=== PATIENT | female | born 1980 | race Caucasian/White ===

== ENCOUNTER 2019-12-23 00:24 | Emergency (ER) | payer OTHER, SELFPAY ==
[2019-12-23] MEDS ORDERED: Sodium Chloride 0.9% 1,000 ML IV ONE (00:59)
[2019-12-23] MEDS ORDERED: LORazepam 2 MG/ML SDV IVPUSH ONE (01:01)
--- NOTE | 2019-12-23 01:04 | EDM.PDOC ---
ED HPI GENERAL MEDICAL PROBLEM - General Chief Complaint: General Stated Complaint: SPOKE TO NURSE Time Seen by Provider: 12/23/19 00:47 - History of Present Illness INITIAL COMMENTS - FREE TEXT/NARRATIVE: PI the patient took an edible at 8 PM. She is never used marijuana or drugs. The edible was one that was given to her by a friend he is fairly sophisticated habitual marijuana user and she presumes at a fairly high concentration. She had an entire rice crispy sized edible. Since then she is becoming increasingly paranoid and has feelings and thoughts that bother her. She is actually quite frightened. She is frightened because her thoughts are that she might suddenly do something she cannot explain like hurt herself or hurt somebody else. She is also afraid someone else will hurt her. The patient has a history of depression but has never been admitted. The patient has never tried suicide and never been dangerous. The patient wants the thoughts to go away and presents here because she is worried that they are persisting so long. History of present illness: [] Review of systems: As per history of present illness and below otherwise all systems reviewed and negative. Past medical history: As per history of present illness and as reviewed below otherwise noncontributory. Surgical history: As per history of present illness and as reviewed below otherwise noncontributory. Social history: No reported history of drug or alcohol abuse. Family history: As per history of present illness and as reviewed below otherwise noncontributory. Physical exam: Constitutional - well developed, well-nourished and in no acute distress HEENT - normocephalic, no evidence of trauma - external nose and mouth normal - no mass in neck and no JVD - mucosae moist EYES - full EOM, PERRL, no icterus - no evidence of inflammation, injection, or drainage Respiratory - no respiratory distress, equal bilateral expansion, lungs clear to auscultation and no abnormal lung sounds Cardiovascular - Regular Rhythm with S1 and S2 appreciated and no murmur, gallop or rub. GI - abdomen soft without distension or organomegaly - normal bowel sounds - no guard or rebound Musculoskeletal no gross deformity of long bones or joints - no tenderness, swelling or edema Neurologic - Alert and oriented times four - CN II-XII grossly intact - motor sensory and coordination symmetrically normal Psychiatric -patient thought content is normal except for the fact that she has the fear that she is going to think about and act out on impulsive behavior like hurting herself or hurting someone else. She has no desire to hurt herself or hurt anyone. The patient is cooperative and pleasant. Hematologic - No petechiae or purpura - mucosa appropriate color and sclera not pale - normal nail bed color and refill Integument - no rash or evidence of trauma - normal turgor Diagnostics: [] Therapeutics: [] Impression: [] Plan: [] Definitive disposition and diagnosis as appropriate pending reevaluation and review of above. - Related Data Allergies Allergy/AdvReac Type Severity Reaction Status Date / Time adhesive Allergy Rash Verified 12/23/19 00:40 morphine Allergy Nausea and Verified 12/23/19 00:40 Vomiting Penicillins Allergy Rash Verified 12/23/19 00:40 Home Meds: Home Meds . 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 History: Reports: Endometriosis, Musculoskeletal History: Reports: None Neurological History: Reports: Headaches, Chronic Other Neuro History: reports daily headaches Psychiatric History: Reports: None Endocrine/Metabolic History: Reports: None Hematologic History: Reports: None Immunologic History: Reports: None Oncologic (Cancer) History: Reports: None Dermatologic History: Reports: Other (See Below) Other Dermatologic History: lichen sclerosus - Infectious Disease History Infectious Disease History: Reports: Chicken Pox - Past Surgical History Head Surgeries/Procedures: Reports: None HEENT Surgical History: Reports: None Cardiovascular Surgical History: Reports: None Respiratory Surgical History: Reports: None GI Surgical History: Reports: Colonoscopy Female Surgical History: Reports: Hysterectomy Endocrine Surgical History: Reports: None Neurological Surgical History: Reports: None Musculoskeletal Surgical History: Reports: None Oncologic Surgical History: Reports: None Dermatological Surgical History: Reports: None Social & Family History - Family History Cardiac: Reports: Hypertension Respiratory: Reports: Other (See Below) Other Respiratory Family Hisory: Lung cancer Oncologic: Reports: Lung - Tobacco Use Smoking Status *Q: Never Smoker Second Hand Smoke Exposure: No - Caffeine Use Caffeine Use: Reports: None - Recreational Drug Use Recreational Drug Use: No ED ROS GENERAL - Review of Systems Review Of Systems: Comprehensive ROS is negative, except as noted in HPI. ED EXAM, GENERAL - Physical Exam Exam: See Below Free Text/Narrative:: My physical exam as in the HPI Course - Vital Signs Text/Narrative:: 1:46 AM patient's calm and in no acute distress 2:47 AM patient has a supportive and is in no acute distress. Discharged in satisfactory condition. Last Recorded V/S: Last Vital Signs Temp 96.8 F L 12/23/19 00:36 Pulse 104 H 12/23/19 00:36 Resp 20 12/23/19 00:36 BP 143/95 H 12/23/19 00:36 Pulse Ox 98 12/23/19 00:36 - Orders/Labs/Meds Orders: Active Orders 24 hr Category Date Time Status COMPREHENSIVE METABOLIC PN,CMP [CHEM] Stat Lab 12/23/19 02:00 Results Labs: Laboratory Tests 12/23/19 12/23/19 Range/Units 02:00 02:00 WBC 17.28 H (4.0-11.0) K/uL RBC 4.89 (4.30-5.90) M/uL Hgb 14.8 (12.0-16.0) g/dL Hct 43.7 (36.0-46.0) % MCV 89.4 (80.0-98.0) fL MCH 30.3 (27.0-32.0) pg MCHC 33.9 (31.0-37.0) g/dL RDW Std Deviation 43.1 (28.0-62.0) fl RDW Coeff of Mathew 13 (11.0-15.0) % Plt Count 328 (150-400) K/uL MPV 9.20 (7.40-12.00) fL Neut % (Auto) 80.5 H (48.0-80.0) % Lymph % (Auto) 13.1 L (16.0-40.0) % Gillespie % (Auto) 5.4 (0.0-15.0) % Eos % (Auto) 0.8 (0.0-7.0) % Baso % (Auto) 0.2 (0.0-1.5) % Neut # (Auto) 13.9 H (1.4-5.7) K/uL Lymph # (Auto) 2.3 (0.6-2.4) K/uL Gillespie # (Auto) 0.9 H (0.0-0.8) K/uL Eos # (Auto) 0.1 (0.0-0.7) K/uL Baso # (Auto) 0.0 (0.0-0.1) K/uL Nucleated RBC % 0.0 /100WBC Nucleated RBCs # 0 K/uL Sodium 140 (136-145) mmol/L Potassium 4.3 (3.5-5.1) mmol/L Chloride 103 (98-107) mmol/L Carbon Dioxide 26.4 (21.0-32.0) mmol/L BUN 15 (7.0-18.0) mg/dL Creatinine 0.8 (0.6-1.0) mg/dL Est Cr Clr Drug Dosing 93.63 mL/min Estimated GFR (MDRD) > 60.0 ml/min Glucose 171 H (74-106) mg/dL Calcium 8.7 (8.5-10.1) mg/dL Total Bilirubin 0.3 (0.2-1.0) mg/dL ALT 50 (14-63) IU/L Alkaline Phosphatase 120 H (46-116) U/L Total Protein 7.4 (6.4-8.2) g/dL Albumin 3.9 (3.4-5.0) g/dL Globulin 3.5 (2.6-4.0) g/dL Albumin/Globulin Ratio 1.1 (0.9-1.6) Meds: Medications Discontinued Medications Generic Name Dose Route Start Last Admin Trade Name Freq PRN Reason Stop Dose Admin Sodium Chloride 1,000 mls @ 999 mls/hr 12/23/19 00:59 12/23/19 01:52 Normal Saline IV 12/23/19 01:59 Not Given .BOLUS ONE Lorazepam 0.5 mg 12/23/19 01:01 12/23/19 01:52 Ativan IVPUSH 12/23/19 01:02 Not Given ONETIME ONE Lorazepam 0.5 mg 12/23/19 01:25 12/23/19 01:28 Ativan PO 12/23/19 01:26 0.5 mg ONETIME ONE Administration Lorazepam Confirm 12/23/19 01:25 12/23/19 01:52 Ativan Administered 12/23/19 01:26 Not Given Dose 0.5 mg .ROUTE .STK-MED ONE Departure - Departure Time of Disposition: 02:45 Disposition: Home, Self-Care 01 Condition: Good Clinical Impression: Anxiety, Medication reaction - Discharge Information Instructions: Accidental Drug Poisoning, Adult, Supporting Someone With Anxiety Referrals: Benigno Mendoza MD [Primary Care Provider] - Forms: ED Department Discharge Additional Instructions: [facility] [address] [place] [id number] [id number] The following information is given to patients seen in the emergency department who are being discharged to home. This information is to outline your options for follow-up care. We provide all patients seen in our emergency department with a follow-up referral. The need for follow-up, as well as the timing and circumstances, are variable depending upon the specifics of your emergency department visit. If you don't have a primary care physician on staff, we will provide you with a referral. We always advise you to contact your personal physician following an emergency department visit to inform them of the circumstance of the visit and for follow-up with them and/or the need for any referrals to a consulting specialist. The emergency department will also refer you to a specialist when appropriate. This referral assures that you have the opportunity for follow-up care with a specialist. All of these measure are taken in an effort to provide you with optimal care, which includes your follow-up. Under all circumstances we always encourage you to contact your private physician who remains a resource for coordinating your care. When calling for follow-up care, please make the office aware that this follow-up is from your recent emergency room visit. If for any reason you are refused follow-up, please contact the [facility] Emergency Department at and asked to speak to the emergency department charge nurse. Sepsis Event Note (ED) - Evaluation Sepsis Screening Result: No Definite Risk - Focused Exam Vital Signs: Vital Signs Temp Pulse Resp BP Pulse Ox 12/23/19 00:36 96.8 F L 104 H 20 143/95 H 98 - My Orders Last 24 Hours: My Active Orders 12/23/19 02:00 COMPREHENSIVE METABOLIC PN,CMP [CHEM] Stat - Assessment/Plan Last 24 Hours: My Active Orders 12/23/19 02:00 COMPREHENSIVE METABOLIC PN,CMP [CHEM] Stat
[2019-12-23] MEDS ORDERED: LORazepam 0.5 MG Tab PO ONE (01:25)
[2019-12-23] MEDS ORDERED: LORazepam 0.5 MG Tab ONE (01:25)
[2019-12-23 02:23] LABS: BLOOD UREA NITROGEN,BUN 15 mg/dL (7.0-18.0); CARBON DIOXIDE,CO2 26.4 mmol/L (21.0-32.0); CHLORIDE,CL 103 mmol/L (98-107); GLUCOSE RANDOM 171 mg/dL (74-106); POTASSIUM,K 4.3 mmol/L (3.5-5.1); SODIUM,NA 140 mmol/L (136-145)
[2019-12-23 03:04] VITALS: BP 119/83; PULSE 99
== END 2019-12-23 03:00 | disposition home or self-care (01) ==
LOC: MW.ED 00:24
DX: F41.9 Anxiety disorder, unspecified (principal); T40.7X5A Adverse effect of cannabis (derivatives), initial encounter; Z88.5 Allergy status to narcotic agent; Z88.0 Allergy status to penicillin; Z91.048 Other nonmedicinal substance allergy status
CPT/HCPCS: 36415; 80053; 85025; 99284; A9270; 99282

== ENCOUNTER 2020-12-19 11:54 | Emergency (ER) | payer SELFPAY ==
[2020-12-19] MEDS ORDERED: Ibuprofen 800 MG Tab PO ONE (13:12)
--- NOTE | 2020-12-19 13:14 | EDM.PDOC ---
ED HPI GENERAL MEDICAL PROBLEM - General Chief Complaint: Respiratory Problem Stated Complaint: PT MEGHAN SHE HAS BEEN RUNNING 89 FEVER Time Seen by Provider: 12/19/20 12:09 - History of Present Illness INITIAL COMMENTS - FREE TEXT/NARRATIVE: History of present illness: [] The patient has body aches and fever for 3 days. She has been exposed to Covid perhaps. She is not vaccinated. Her BMI is over 25. She does not have any other systemic illness of significance. Review of systems: As per history of present illness and below otherwise all systems reviewed and negative. Past medical history: As per history of present illness and as reviewed below otherwise noncontributory. Surgical history: As per history of present illness and as reviewed below otherwise noncontributory. Social history: No reported history of drug or alcohol abuse. Family history: As per history of present illness and as reviewed below otherwise noncontributory. Physical exam: Constitutional - well developed, well-nourished and in no acute distress HEENT - normocephalic, no evidence of trauma - external nose and mouth normal - no mass in neck and no JVD - mucosae moist EYES - full EOM, PERRL, no icterus - no evidence of inflammation, injection, or drainage Respiratory - no respiratory distress, equal bilateral expansion, lungs diminished breath sounds with prolonged expiratory phase of respiration. Cardiovascular - Regular Rhythm with S1 and S2 appreciated and no murmur, gallop or rub. GI - abdomen soft without distension or organomegaly - normal bowel sounds - no guard or rebound Musculoskeletal no gross deformity of long bones or joints - no tenderness, swelling or edema Neurologic - Alert and oriented times four - CN II-XII grossly intact - motor sensory and coordination symmetrically normal Psychiatric - appropriate mood and affect with normal thought content Hematologic - No petechiae or purpura - mucosa appropriate color and sclera not pale - normal nail bed color and refill Integument - no rash or evidence of trauma - normal turgor Diagnostics: [] Therapeutics: [] Impression: [] Plan: [] Definitive disposition and diagnosis as appropriate pending reevaluation and review of above. general Pain Score (Numeric/FACES): 3 - Related Data Allergies Allergy/AdvReac Type Severity Reaction Status Date / Time adhesive Allergy Rash Verified 12/19/20 12:51 morphine Allergy Nausea and Verified 12/19/20 12:51 Vomiting Penicillins Allergy Rash Verified 12/19/20 12:51 Home Meds: Home Meds Azithromycin 250 mg PO DAILY #6 tablet 12/19/20 [Rx] Past Medical History HEENT History: Reports: None Cardiovascular History: Reports: None Respiratory History: Reports: None Gastrointestinal History: Reports: GERD, Other (See Below) Other Gastrointestinal History: present c/o abd bloating and epigastric pain Genitourinary History: Reports: None 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, Musculoskeletal History: Reports: None Neurological History: Reports: Headaches, Chronic Other Neuro History: reports daily headaches Psychiatric History: Reports: None Endocrine/Metabolic History: Reports: None Hematologic History: Reports: None Immunologic History: Reports: None Oncologic (Cancer) History: Reports: None Dermatologic History: Reports: Other (See Below) Other Dermatologic History: lichen sclerosus - Infectious Disease History Infectious Disease History: Reports: Chicken Pox - Past Surgical History Head Surgeries/Procedures: Reports: None HEENT Surgical History: Reports: None Cardiovascular Surgical History: Reports: None Respiratory Surgical History: Reports: None GI Surgical History: Reports: Colonoscopy Female Surgical History: Reports: Hysterectomy Endocrine Surgical History: Reports: None Neurological Surgical History: Reports: None Musculoskeletal Surgical History: Reports: None Oncologic Surgical History: Reports: None Dermatological Surgical History: Reports: None Social & Family History - Family History Cardiac: Reports: Hypertension Respiratory: Reports: Other (See Below) Other Respiratory Family Hisory: Lung cancer Oncologic: Reports: Lung - Tobacco Use Tobacco Use Status *Q: Never Tobacco User - Caffeine Use Caffeine Use: Reports: None ED ROS GENERAL - Review of Systems Review Of Systems: Comprehensive ROS is negative, except as noted in HPI. ED EXAM, GENERAL - Physical Exam Exam: See Below Free Text/Narrative:: My physical exam is in the HPI Course - Vital Signs Text/Narrative:: 1438 the patient has a lobar pneumonia that is atypical for COVID-19. She chose to have Zithromax for the possibility this could be bacterial. Because of her BMI she also chose to have monoclonal antibodies which will be arranged. Last Recorded V/S: Last Vital Signs Temp 38.4 C H 12/19/20 13:18 Pulse 95 12/19/20 12:51 Resp 18 12/19/20 12:51 BP 129/76 12/19/20 12:51 Pulse Ox 95 12/19/20 12:51 - Orders/Labs/Meds Labs: Laboratory Tests 12/19/20 Range/Units 13:20 SARS-CoV-2 RNA (SHUKRI) POSITIVE H (NEGATIVE) Meds: Medications Discontinued Medications Generic Name Dose Route Start Last Admin Trade Name Michael PRN Reason Stop Dose Admin Ibuprofen 800 mg 12/19/20 13:12 12/19/20 13:18 Ibuprofen 800 Mg Tab PO 12/19/20 13:13 800 mg ONETIME ONE Administration Departure - Departure Time of Disposition: 14:41 Disposition: Home, Self-Care 01 Condition: Good Clinical Impression: COVID-19, Right lower lobe pneumonia - Discharge Information Prescriptions: Azithromycin 250 mg PO DAILY #6 tablet Instructions: COVID-19 Vaccine Information, COVID-19 Frequently Asked Questions, 10 Things You Can Do to Manage Your COVID-19 Symptoms at Home - [facility] (10/11/2019), COVID-19: Quarantine vs. Isolation - [facility] (03/28/2020), Community- Acquired Pneumonia, Adult Referrals: Benigno Mendoza MD [Primary Care Provider] - Forms: ED Department Discharge, ED Department Discharge Additional Instructions: [facility] - Primary Care [address] [place] [id number] [id number] The following information is given to patients seen in the emergency department who are being discharged to home. This information is to outline your options for follow-up care. We provide all patients seen in our emergency department with a follow-up referral. The need for follow-up, as well as the timing and circumstances, are variable depending upon the specifics of your emergency department visit. If you don't have a primary care physician on staff, we will provide you with a referral. We always advise you to contact your personal physician following an emergency department visit to inform them of the circumstance of the visit and for follow-up with them and/or the need for any referrals to a consulting specialist. The emergency department will also refer you to a specialist when appropriate. This referral assures that you have the opportunity for follow-up care with a specialist. All of these measure are taken in an effort to provide you with optimal care, which includes your follow-up. Under all circumstances we always encourage you to contact your private physician who remains a resource for coordinating your care. When calling for follow-up care, please make the office aware that this follow-up is from your recent emergency room visit. If for any reason you are refused follow-up, please contact the [facility] Emergency Department at and asked to speak to the emergency department charge nurse. Sepsis Event Note (ED) - Evaluation Sepsis Screening Result: No Definite Risk - Focused Exam Vital Signs: Vital Signs Temp Temp Pulse Resp BP Pulse Ox 12/19/20 13:18 38.4 C H 12/19/20 12:51 38.4 C H 95 18 129/76 95
--- NOTE | 2020-12-19 14:01 | CR ---
INDICATION: Body aches and dyspnea. TECHNIQUE: Upright portable AP image of the chest. COMPARISON: 01/18/2020. FINDINGS: Shallow inspiration and lower right lung pneumonia. Left lung clear. No pleural effusion. Heart size and pulmonary vasculature within normal limits. No significant bony abnormality. IMPRESSION : Shallow inspiration and lower right lung pneumonia. Dictated by Malachi Sexton MD @ 12/19/2020 2:00:11 PM (Electronically Signed)
[2020-12-19 15:21] VITALS: BP 128/83; PULSE 96
== END 2020-12-19 14:59 | disposition home or self-care (01) ==
LOC: MW.ED 11:54
DX: U07.1 COVID-19 (principal); J12.82 Pneumonia due to coronavirus disease 2019; Z91.048 Other nonmedicinal substance allergy status; Z88.5 Allergy status to narcotic agent; Z88.0 Allergy status to penicillin
CPT/HCPCS: 71045; 87635; 99283; A9270; U0002

== ENCOUNTER 2022-04-28 15:36 | Emergency (ER) | payer BC, MEDICAID ==
[2022-04-28 16:00] VITALS: BP 176/100; PULSE 83
[2022-04-28] MEDS ORDERED: Ketorolac 30 MG/ML SDV IVPUSH ONE (16:52)
== END 2022-04-28 17:47 | disposition home or self-care (01) ==
LOC: MW.ED 15:36
DX: R07.89 Other chest pain (principal); Z91.048 Other nonmedicinal substance allergy status; Z88.6 Allergy status to analgesic agent; Z91.040 Latex allergy status; Z88.0 Allergy status to penicillin; Z88.2 Allergy status to sulfonamides; Z90.710 Acquired absence of both cervix and uterus
CPT/HCPCS: 36415; 86140; 93005; 96374; 99285; J1885; 93010; 99283

== ENCOUNTER 2022-10-05 16:55 | Emergency (ER) | payer MEDICAID ==
[2022-10-05] MEDS ORDERED: Aspirin 81 MG Tab.Chew PO ONE (17:20)
[2022-10-05] MEDS ORDERED: Aluminum Hydroxide/Magnesium Hydroxide/Simethicone XS Susp 30 ML Cup PO ONE (17:22)
[2022-10-05 18:07] LABS: BASOPHILS ABSOLUTE AUTO 0.1 K/uL (0.0-0.1); BASOPHILS PERCENT AUTO 0.4 % (0.0-1.5); EOSINOPHILS ABSOLUTE AUTO 0.2 K/uL (0.0-0.7); EOSINOPHILS PERCENT AUTO 1.5 % (0.0-7.0); HEMATOCRIT 41.6 % (36.0-46.0); LYMPHOCYTES PERCENT AUTO 26.9 % (16.0-40.0); MEAN CORPUSCULAR HEMOGLOBIN 29.6 pg (27.0-32.0); MEAN CORPUSCULAR HGB CONC 33.7 g/dL (31.0-37.0); MEAN CORPUSCULAR VOLUME 87.9 fL (80.0-98.0); MONOCYTES ABSOLUTE AUTO 0.9 K/uL (0.0-0.8); MONOCYTES PERCENT AUTO 5.9 % (0.0-15.0); NEUTROPHILS ABSOLUTE AUTO 9.7 K/uL (1.4-5.7); NEUTROPHILS PERCENT AUTO 65.3 % (48.0-80.0); NRBC ABSOLUTE 0 K/uL; PLATELET COUNT,PLT 331 K/uL (150-400); RED BLOOD CELL COUNT 4.73 M/uL (4.30-5.90)
[2022-10-05 18:15] LABS: INR 0.96 (0.86-1.11); PTT,PARTIAL THROMBOPLSTIN TIME 29.1 SEC (23.9-30.7)
[2022-10-05 18:18] LABS: D-DIMER QUANTITATIVE < 0.19 mg/L FEU (0.00-0.50)
[2022-10-05 18:33] LABS: ALANINE AMINOTRANSFERASE,ALT 27 IU/L (14-63); ALBUMIN 3.7 g/dL (3.4-5.0); ALKALINE PHOSPHATASE 86 U/L (46-116); ASPARTATE AMNIOTRANSFERASE,AST 15 IU/L (15-37); BILIRUBIN TOTAL 0.5 mg/dL (0.2-1.0); BLOOD UREA NITROGEN,BUN 8 mg/dL (7.0-18.0); CARBON DIOXIDE,CO2 25.2 mmol/L (21.0-32.0); CHLORIDE,CL 103 mmol/L (98-107); CREATININE 0.7 mg/dL (0.6-1.0); EST CRCL DRUG DOSING (CG) 100.01 mL/min; GLUCOSE RANDOM 89 mg/dL (74-106); MAGNESIUM 2.1 mg/dL (1.8-2.4); POTASSIUM,K 3.6 mmol/L (3.5-5.1); PROTEIN TOTAL,TP 7.3 g/dL (6.4-8.2); SODIUM,NA 140 mmol/L (136-145)
[2022-10-05 18:36] LABS: ESTIMATED GFR 112 mL/min (>60)
[2022-10-05 19:09] VITALS: BP 117/62; PULSE 67
== END 2022-10-05 19:09 | disposition home or self-care (01) ==
LOC: MW.ED 16:55
DX: R07.89 Other chest pain (principal); K21.9 Gastro-esophageal reflux disease without esophagitis; Z88.5 Allergy status to narcotic agent; Z91.040 Latex allergy status; Z88.8 Allergy status to other drugs, medicaments and biological substances; Z88.2 Allergy status to sulfonamides; Z91.09 Other allergy status, other than to drugs and biological substances
CPT/HCPCS: 36415; 71045; 80053; 83735; 84484; 85025; 85379; 85610; 85730; 93005; 99285; A9270; 93010; 99283

== ENCOUNTER 2022-12-01 11:07 | Emergency (ER) | payer MEDICAID ==
[2022-12-01] MEDS ORDERED: Sodium Chloride 0.9% 10 ML Syringe FLUSH PRN (14:29)
[2022-12-01] MEDS ORDERED: Sodium Chloride 0.9% 2.5 ML Syringe FLUSH PRN (14:29)
[2022-12-01] MEDS ORDERED: Sodium Chloride 0.9% 500 ML IV SCH (14:30)
[2022-12-01] MEDS ORDERED: Ketorolac 30 MG/ML SDV IVPUSH ONE (14:33)
[2022-12-01 14:48] LABS: BASOPHILS PERCENT AUTO 0.3 % (0.0-1.5); EOSINOPHILS ABSOLUTE AUTO 0.1 K/uL (0.0-0.7); EOSINOPHILS PERCENT AUTO 0.9 % (0.0-7.0); HEMATOCRIT 41.9 % (36.0-46.0); HEMOGLOBIN 14.4 g/dL (12.0-16.0); LYMPHOCYTES ABSOLUTE AUTO 3.4 K/uL (0.6-2.4); LYMPHOCYTES PERCENT AUTO 26.3 % (16.0-40.0); MEAN CORPUSCULAR HGB CONC 34.4 g/dL (31.0-37.0); MEAN CORPUSCULAR VOLUME 87.3 fL (80.0-98.0); MONOCYTES ABSOLUTE AUTO 0.5 K/uL (0.0-0.8); MONOCYTES PERCENT AUTO 4.1 % (0.0-15.0); NEUTROPHILS ABSOLUTE AUTO 8.9 K/uL (1.4-5.7); NEUTROPHILS PERCENT AUTO 68.4 % (48.0-80.0); NRBC ABSOLUTE 0 K/uL; PLATELET COUNT,PLT 298 K/uL (150-400); WHITE BLOOD CELL COUNT,WBC 13.08 K/uL (4.0-11.0)
[2022-12-01 15:28] LABS: A/G RATIO 0.9 (0.9-1.6); ALBUMIN 3.6 g/dL (3.4-5.0); BILIRUBIN TOTAL 0.5 mg/dL (0.2-1.0); CALCIUM 8.7 mg/dL (8.5-10.1); CARBON DIOXIDE,CO2 29.4 mmol/L (21.0-32.0); CREATININE 0.8 mg/dL (0.6-1.0); EST CRCL DRUG DOSING (CG) 87.51 mL/min; POTASSIUM,K 3.3 mmol/L (3.5-5.1); PROTEIN TOTAL,TP 7.5 g/dL (6.4-8.2)
[2022-12-01 15:45] LABS: APPEARANCE,URINE SLT CLOUDY; BILIRUBIN,URINE NEGATIVE (NEGATIVE); COLOR,URINE YELLOW; GLUCOSE,URINE NEGATIVE (NEGATIVE); KETONES,URINE NEGATIVE (NEGATIVE); LEUKOCYTE ESTERASE,URINE NEGATIVE (NEGATIVE); NITRITE,URINE NEGATIVE (NEGATIVE); OCCULT BLOOD,URINE NEGATIVE (NEGATIVE); PROTEIN,URINE NEGATIVE (NEGATIVE); UROBILINOGEN,URINE 0.2 EU/dL (<2.0)
[2022-12-01] MEDS ORDERED: Iopamidol 755 MG/ML 500 ML Multipack Bottle IVPUSH ONE (18:39)
[2022-12-02 00:52] VITALS: BP 120/73; PULSE 79
== END 2022-12-01 20:22 | disposition home or self-care (01) ==
LOC: MW.ED 11:07
DX: R10.31 Right lower quadrant pain (principal); R10.32 Left lower quadrant pain; R30.0 Dysuria; K21.9 Gastro-esophageal reflux disease without esophagitis; Z91.040 Latex allergy status; Z88.0 Allergy status to penicillin; Z88.5 Allergy status to narcotic agent; Z88.2 Allergy status to sulfonamides; Z91.048 Other nonmedicinal substance allergy status; Z79.899 Other long term (current) drug therapy; Z90.710 Acquired absence of both cervix and uterus
CPT/HCPCS: 36415; 74177; 80053; 81003; 83605; 83690; 85025; 96374; 99284; J1885; J3490; J7040; Q9967